=== PATIENT | male | born 1985 | race Caucasian/White ===

== ENCOUNTER 2016-09-19 22:37 | Emergency (ER) | payer BC ==
--- NOTE | 2016-09-20 00:19 | ED CLINICAL REPORT ---
Clinical Report - Physicians/Mid Levels [facility] [address] [place] [address] 09/19/2016 22:38 Patient: CHU ROY Time Seen: 00:07. Arrived- By private vehicle. Historian- patient. HISTORY OF PRESENT ILLNESS Chief Complaint: EYE PAIN and REDNESS. This started several hours ago, involves the left eye, is characterized as moderate in severity and has been constant and is still present. The patient sustained injury. This occurred at home. He has dust and unknown foreign material in the left eye that fell from overhead (Pt was working under sink felt something fall in his eye and it has become more painful since). Moderate left eye discomfort. Moderate left eye redness. No eyelid swelling, double vision or loss of vision. Photophobia. Patient denies injury to the head, face or neck. REVIEW OF SYSTEMS No fever, sore throat or cough. All systems otherwise negative, except as recorded above. PAST HISTORY Negative. Prior eye injury. He does not wear contact lenses. No history of diabetes mellitus or glaucoma. Tetanus immunization status is unknown. Surgeries: No history of previous surgery. SOCIAL HISTORY Never smoker. Occasional alcohol use. No drug use. ADDITIONAL NOTES The nursing notes have been reviewed. PHYSICAL EXAM Vital Signs: 09/19/2016 23:25 BP: 135/87. HR: 78. RR: 18. O2 saturation: 100%. Temp: 98.2 F. Appearance: Alert. Oriented X3. Patient in moderate distress. HEENT: Pharynx normal. Head appears normal to external inspection. Rt Eye: Right eye exam normal. Eyes: Visual acuity noted- see nurse's notes. Left eyelid everted for examination. Left cornea examined with fluorescein stain. Eyelids appear normal to inspection. Pupils equal, round and reactive to light. Accommodation normal. EOMs intact. Periorbital areas appear normal to inspection. Anterior chambers clear. Anterior chambers of normal depth. Lt Eye: Injected conjunctiva. Single medium sized circular shaped corneal abrasion located inferiorly. Fluorescein dye uptake on the cornea. No subconjunctival hemorrhage, conjunctival foreign body or corneal foreign body. Neck: Neck supple. Normal inspection. CVS: Normal heart rate and rhythm. Heart sounds normal. Respiratory: No respiratory distress. Breath sounds normal. Skin: No rash. Extremities: Extremities negative. Neuro: Oriented X 3. Mood/affect normal. LABS, X-RAYS, AND EKG Pulse Oximetry: 09/19/2016 23:25 O2 saturation: 100%. (FIO2 - room air). Interpretation: normal. PROGRESS AND PROCEDURES Course of Care: Proparacaine Eye Drops Opthalmic solution 2 drop given. Given in the left eye. Corneal abrasion at 6 O'Clock. no FB seen. Patient/family counseled. Disposition: Discharged. Condition: stable and improved. CLINICAL IMPRESSION Medium corneal abrasion to the left eye. No foreign body or rust ring. INSTRUCTIONS Do not work for two days. Drink plenty of fluids. No alcohol. Warnings: Further evaluation is necessary. It is very important to follow up with a physician. SEDATIVE MEDICATION: You were given sedative medication during your visit. Do not drive or operate dangerous machinery. CONTROLLED SUBSTANCE WARNINGS. GENERAL WARNINGS: Return or contact your physician immediately if your condition worsens or changes unexpectedly, if not improving as expected, or if other problems arise. Prescription Medications: Hydrocodone/APAP 5mg/325mg: take 1 to 2 orally every 6 hours as needed for pain. Dispense fifteen (15). No refills. Sulfacetamide ophthalmic solution 10% : Instill 2 drops into affected eye every 2 hours while awake for 1 week. Dispense fifteen (15) mL. No refills. OTC Medications: Acetaminophen (available over the counter): take according to label instructions. Motrin (available over the counter): take according to label instructions. Follow-up: Follow up with your doctor tomorrow. Follow-up with: Jigar Gilmore MD, Ophthalmology, , [facility], [address] [place] [address]; Abigail Garcia MD, Ophthalmology, [facility], [address] [place] [address] - [address], [place] [id number] Follow up tomorrow if not better. (Electronically signed by Amari Morgan DO 09/20/2016 3:29)
--- NOTE | 2016-09-20 00:19 | ED ORDER SUMMARY ---
..... Patient: CHU ROY OrderSheet [facility] VisitID: [id number] [address] [place] [address] 31y, M Registration Date/Time: 09/19/2016 ORDER SHEET Weight: 88.4 kg (stated) Allergies: No Known Drug Allergy GENERAL ORDERS: MEDICATION ORDERS: Proparacaine Eye Drops (Solution 0.5 %) 2 drops (affected eye) (23:53 09/19/2016 Elis Mcpherson verbal order read back to Sharonda WEATHERS) (23:53 Elis Mcpherson) IV FLUIDS: ORDER SHEET NOTES: [Electronically signed by Elvis Murdock R.N. (01:15 09/20/2016)] [Electronically signed by Amari Morgan DO (03:29 09/20/2016)] [Electronically locked/signed by Elvis Murdock R.N. (:15 09/20/2016)]
--- NOTE | 2016-09-20 00:19 | ED NURSING NOTES ---
Clinical Report - Nurses [facility] [address] [place] [address] 09/19/2016 22:38 Patient: CHU ROY TRIAGE Triage time 23:Sep 19 2016. Acuity: LEVEL 4. Chief Complaint: REDNESS, PAIN and FOREIGN BODY TO LEFT EYE. --23:29 Elvis Murdock R.N. 23:25 09/19/16. BP: 135/87. HR: 78. RR: 18. O2 saturation: 100%. Temp: 98.2 F. Pain level now 7/10. --23:29 Elvis Murdock R.N. Weight: 88.4 kg stated. Height/Length: 70 inches Per Patient. BMI: 28. --23:28 Elvis Murdock R.N. Medications None. --23:26 Elvis Murdock R.N. Allergies No Known Drug Allergy. --23:26 Elvis Murdock R.N. History Arrived by private vehicle. Historian: patient. ( Pt was working under sink felt something fall in his eye and it has become more painful since.). This started today. SOCIAL HX: Never smoker. Alcohol use; consumes beer occasionally. --23:29 Elvis Murdock R.N. Assessment The patient states feels the same. --23:29 Elvis Murdock R.N. Interventions ID band on patient. To treatment room. --23:29 Elvis Murdock R.N. PHYSICAL ASSESSMENT ( Unable to perform visual acuity with L eye pt unable to keep it open. R eye 20/20). HEENT: Photophobia present. Conjunctival findings present: redness of the left conjunctiva. --23:42 Elvis Murdock R.N. NURSING PROGRESS NOTES 23:53 09/19/2016 Proparacaine Eye Drops Opthalmic solution 2 drop given. Given in the left eye. --23:53 Elvis Murdock R.N. Cold pack applied. Call light placed in reach. Bed placed in lowest position. ( Pt resting in bed lights dimmed for comfort). --23:57 Elvis Murdock R.N. DISPOSITION / DISCHARGE No learning barriers present. Discharge instructions provided and reviewed. Patient verbalized understanding. The patient was discharged by the physician. He was discharged home. ( Pt ambulated on discharge, steady on his feet verbalized understanding of discharge instructions follow up care and medication admin). --00:34 Elvis Murdock R.N. 00:32 09/20/16. BP: 110/65. HR: 89. RR: 18. O2 saturation: 100%. Temp: 98 F. Pain level now 02/25. --00:34 Elvis Murdock R.N. Departure time: 00:34 Sep 20 2016. --00:34 Elvis Murdock R.N. Locked/Released at 09/20/2016 1:15 by Elvis Murdock R.N.
--- NOTE | 2016-09-20 00:19 | ED NURSING NOTES ---
Clinical Report - Nurses [facility] [address] [place] [address] 09/19/2016 22:38 Patient: CHU ROY TRIAGE Triage time 23:Sep 19 2016. Acuity: LEVEL 4. Chief Complaint: REDNESS, PAIN and FOREIGN BODY TO LEFT EYE. --23:29 Elvis Murdock R.N. 23:25 09/19/16. BP: 135/87. HR: 78. RR: 18. O2 saturation: 100%. Temp: 98.2 F. Pain level now 7/10. --23:29 Elvis Murdock R.N. Weight: 88.4 kg stated. Height/Length: 70 inches Per Patient. BMI: 28. --23:28 Elvis Murdock R.N. Medications None. --23:26 Elvis Murdock R.N. Allergies No Known Drug Allergy. --23:26 Elvis Murdock R.N. History Arrived by private vehicle. Historian: patient. ( Pt was working under sink felt something fall in his eye and it has become more painful since.). This started today. SOCIAL HX: Never smoker. Alcohol use; consumes beer occasionally. --23:29 Elvis Murdock R.N. Assessment The patient states feels the same. --23:29 Elvis Murdock R.N. Interventions ID band on patient. To treatment room. --23:29 Elvis Murdock R.N. PHYSICAL ASSESSMENT ( Unable to perform visual acuity with L eye pt unable to keep it open. R eye 20/20). HEENT: Photophobia present. Conjunctival findings present: redness of the left conjunctiva. --23:42 Elvis Murdock R.N. NURSING PROGRESS NOTES 23:53 09/19/2016 Proparacaine Eye Drops Opthalmic solution 2 drop given. Given in the left eye. --23:53 Elvis Murdock R.N. Cold pack applied. Call light placed in reach. Bed placed in lowest position. ( Pt resting in bed lights dimmed for comfort). --23:57 Elvis Murdock R.N. DISPOSITION / DISCHARGE No learning barriers present. Discharge instructions provided and reviewed. Patient verbalized understanding. The patient was discharged by the physician. He was discharged home. ( Pt ambulated on discharge, steady on his feet verbalized understanding of discharge instructions follow up care and medication admin). --00:34 Elvis Murdock R.N. 00:32 09/20/16. BP: 110/65. HR: 89. RR: 18. O2 saturation: 100%. Temp: 98 F. Pain level now 02/25. --00:34 Elvis Murdock R.N. Departure time: 00:34 Sep 20 2016. --00:34 Elvis Murdock R.N. Locked/Released at 09/20/2016 1:15 by Elvis Murdock R.N.
--- NOTE | 2016-09-20 00:19 | ED CLINICAL REPORT ---
Clinical Report - Physicians/Mid Levels [facility] [address] [place] [address] 09/19/2016 22:38 Patient: CHU ROY Time Seen: 00:07. Arrived- By private vehicle. Historian- patient. HISTORY OF PRESENT ILLNESS Chief Complaint: EYE PAIN and REDNESS. This started several hours ago, involves the left eye, is characterized as moderate in severity and has been constant and is still present. The patient sustained injury. This occurred at home. He has dust and unknown foreign material in the left eye that fell from overhead (Pt was working under sink felt something fall in his eye and it has become more painful since). Moderate left eye discomfort. Moderate left eye redness. No eyelid swelling, double vision or loss of vision. Photophobia. Patient denies injury to the head, face or neck. REVIEW OF SYSTEMS No fever, sore throat or cough. All systems otherwise negative, except as recorded above. PAST HISTORY Negative. Prior eye injury. He does not wear contact lenses. No history of diabetes mellitus or glaucoma. Tetanus immunization status is unknown. Surgeries: No history of previous surgery. SOCIAL HISTORY Never smoker. Occasional alcohol use. No drug use. ADDITIONAL NOTES The nursing notes have been reviewed. PHYSICAL EXAM Vital Signs: 09/19/2016 23:25 BP: 135/87. HR: 78. RR: 18. O2 saturation: 100%. Temp: 98.2 F. Appearance: Alert. Oriented X3. Patient in moderate distress. HEENT: Pharynx normal. Head appears normal to external inspection. Rt Eye: Right eye exam normal. Eyes: Visual acuity noted- see nurse's notes. Left eyelid everted for examination. Left cornea examined with fluorescein stain. Eyelids appear normal to inspection. Pupils equal, round and reactive to light. Accommodation normal. EOMs intact. Periorbital areas appear normal to inspection. Anterior chambers clear. Anterior chambers of normal depth. Lt Eye: Injected conjunctiva. Single medium sized circular shaped corneal abrasion located inferiorly. Fluorescein dye uptake on the cornea. No subconjunctival hemorrhage, conjunctival foreign body or corneal foreign body. Neck: Neck supple. Normal inspection. CVS: Normal heart rate and rhythm. Heart sounds normal. Respiratory: No respiratory distress. Breath sounds normal. Skin: No rash. Extremities: Extremities negative. Neuro: Oriented X 3. Mood/affect normal. LABS, X-RAYS, AND EKG Pulse Oximetry: 09/19/2016 23:25 O2 saturation: 100%. (FIO2 - room air). Interpretation: normal. PROGRESS AND PROCEDURES Course of Care: Proparacaine Eye Drops Opthalmic solution 2 drop given. Given in the left eye. Corneal abrasion at 6 O'Clock. no FB seen. Patient/family counseled. Disposition: Discharged. Condition: stable and improved. CLINICAL IMPRESSION Medium corneal abrasion to the left eye. No foreign body or rust ring. INSTRUCTIONS Do not work for two days. Drink plenty of fluids. No alcohol. Warnings: Further evaluation is necessary. It is very important to follow up with a physician. SEDATIVE MEDICATION: You were given sedative medication during your visit. Do not drive or operate dangerous machinery. CONTROLLED SUBSTANCE WARNINGS. GENERAL WARNINGS: Return or contact your physician immediately if your condition worsens or changes unexpectedly, if not improving as expected, or if other problems arise. Prescription Medications: Hydrocodone/APAP 5mg/325mg: take 1 to 2 orally every 6 hours as needed for pain. Dispense fifteen (15). No refills. Sulfacetamide ophthalmic solution 10% : Instill 2 drops into affected eye every 2 hours while awake for 1 week. Dispense fifteen (15) mL. No refills. OTC Medications: Acetaminophen (available over the counter): take according to label instructions. Motrin (available over the counter): take according to label instructions. Follow-up: Follow up with your doctor tomorrow. Follow-up with: Jigar Gilmore MD, Ophthalmology, , [facility], [address] [place] [address]; Abigail Garcia MD, Ophthalmology, [facility], [address] [place] [address] - [address], [place] [address] Follow up tomorrow if not better. (Electronically signed by Amari Morgan DO 09/20/2016 3:29)
--- NOTE | 2016-09-20 00:19 | ED ORDER SUMMARY ---
..... Patient: CHU ROY OrderSheet [facility] VisitID: [id number] [address] [place] [address] 31y, M Registration Date/Time: 09/19/2016 ORDER SHEET Weight: 88.4 kg (stated) Allergies: No Known Drug Allergy GENERAL ORDERS: MEDICATION ORDERS: Proparacaine Eye Drops (Solution 0.5 %) 2 drops (affected eye) (23:53 09/19/2016 Elis Mcpherson verbal order read back to Sharonda WEATHERS) (23:53 Elis Mcpherson) IV FLUIDS: ORDER SHEET NOTES: [Electronically signed by Elvis Murdock R.N. (01:15 09/20/2016)] [Electronically signed by Amari Morgan DO (03:29 09/20/2016)] [Electronically locked/signed by Elvis Murdock R.N. (:15 09/20/2016)]
--- NOTE | 2016-09-20 03:29 | ED MED RECONCILIATION SUMMARY ---
Patient: CHU ROY Medication Reconciliation Report [facility] VisitID: [id number] [address] [place] [address] 31y, M Registration Date/Time: 09/19/2016 Weight: 88.4 kg Height/Length: 70 in. BMI: 28.0 ALLERGIES: No Known Drug Allergy The patient's Home Medications are listed below: NONE. The source(s) of the original Home Medication information: Not obtained. The following Medications were given to the patient in the Emergency Department: Proparacaine [Eye Drops] Eye Drops 2 drop, administered: 09/19/2016 11:53:00 PM The following Medications were prescribed to the patient: Acetaminophen (available over the counter): take according to label instructions. -- Amari Morgan DO Motrin (available over the counter): take according to label instructions. -- Amari Morgan DO Hydrocodone/APAP 5mg/325mg: take 1 to 2 orally every 6 hours as needed for pain. Dispense fifteen (15). No refills. -- Amari Morgan DO Sulfacetamide ophthalmic solution 10% : Instill 2 drops into affected eye every 2 hours while awake for 1 week. Dispense fifteen (15) mL. No refills. -- Amari Morgan DO
--- NOTE | 2016-09-20 03:29 | ED MED RECONCILIATION SUMMARY ---
Patient: CHU ROY Medication Reconciliation Report [facility] VisitID: [id number] [address] [place] [address] 31y, M Registration Date/Time: 09/19/2016 Weight: 88.4 kg Height/Length: 70 in. BMI: 28.0 ALLERGIES: No Known Drug Allergy The patient's Home Medications are listed below: NONE. The source(s) of the original Home Medication information: Not obtained. The following Medications were given to the patient in the Emergency Department: Proparacaine [Eye Drops] Eye Drops 2 drop, administered: 09/19/2016 11:53:00 PM The following Medications were prescribed to the patient: Acetaminophen (available over the counter): take according to label instructions. -- Amari Morgan DO Motrin (available over the counter): take according to label instructions. -- Amari Morgan DO Hydrocodone/APAP 5mg/325mg: take 1 to 2 orally every 6 hours as needed for pain. Dispense fifteen (15). No refills. -- Amari Morgan DO Sulfacetamide ophthalmic solution 10% : Instill 2 drops into affected eye every 2 hours while awake for 1 week. Dispense fifteen (15) mL. No refills. -- Amari Morgan DO
--- NOTE | 2016-09-20 03:29 | ED DISCHARGE INSTRUCTIONS ---
Patient: CHU ROY General Instructions [facility] VisitID: [id number] [place] [address] 31y, M Registration Date/Time: 09/19/2016 Medium corneal abrasion to the left eye. No foreign body or rust ring. INSTRUCTIONS Do not work for two days. Drink plenty of fluids. No alcohol. Warnings: Further evaluation is necessary. It is very important to follow up with a physician. SEDATIVE MEDICATION: You were given sedative medication during your visit. Do not drive or operate dangerous machinery. CONTROLLED SUBSTANCE WARNINGS. GENERAL WARNINGS: Return or contact your physician immediately if your condition worsens or changes unexpectedly, if not improving as expected, or if other problems arise. Prescription Medications: Hydrocodone/APAP 5mg/325mg: take 1 to 2 orally every 6 hours as needed for pain. Dispense fifteen (15). No refills. Sulfacetamide ophthalmic solution 10% : Instill 2 drops into affected eye every 2 hours while awake for 1 week. Dispense fifteen (15) mL. No refills. OTC Medications: Acetaminophen (available over the counter): take according to label instructions. Motrin (available over the counter): take according to label instructions. Follow-up: Follow up with your doctor tomorrow. Follow-up with: Jigar Gilmore MD, Ophthalmology, , [facility] [place] [address]; Abigail Garcia MD, Ophthalmology, [facility] [address] [address] Follow up tomorrow if not better. ADDITIONAL INFORMATION Corneal Abrasion The cornea is the clear part in the front of the eye. This sensitive area is very painful when injured. There may be tearing and your vision may be blurry until healing occurs. You may be sensitive to light. This part of the body heals quickly. You can expect the pain to go away within 24-48 hours. If the abrasion is large or deep, your doctor may apply an eye patch, although this is not always done. An antibiotic ointment or eye drops may also be used to prevent infection. Numbing drops may be used to relieve the pain temporarily so that your eyes can be examined. However, these drops cannot be prescribed for home use because that would slow down the healing process. Also, if you cant feel your eye, there is a chance of accidentally injuring your eye further without knowing it. Home Care: A cold pack (ice in a plastic bag, wrapped in a towel) may be applied over the eye (or eyepatch) for 20 minutes at a time, to reduce pain. You may use acetaminophen (Tylenol) or ibuprofen (Motrin, Advil) to control pain, unless another pain medicine was prescribed. [NOTE: If you have chronic liver or kidney disease or ever had a stomach ulcer or GI bleeding, talk with your doctor before using these medicines.] Rest your eyes and do not read until symptoms are gone. If you use contact lenses, do not wear them until all symptoms are gone. If your vision is affected by the corneal abrasion or if an eyepatch was applied, DO NOT DRIVE a motor vehicle or operate machinery until all symptoms are gone. Otherwise, you would have trouble judging distances with only one eye. If your eyes are sensitive to light, try wearing sunglasses, or stay indoors, until symptoms go away. Follow Up as advised by our staff. Serious abrasions may be referred to an artificial glass eye maker (cabinet mounter). If no patch was used but the pain continues for more than 48 hours, you should have another exam. Return to this facility or contact the referral doctor to arrange this. If your eye was patched and if you were asked to remove the patch yourself, see your doctor or return to this facility if your pain is still present after the patch is removed. If you were given a return appointment for patch removal and re-exam, do not miss this. It could be harmful if the patch remains in place longer than advised. Get Prompt Medical Attention if any of the following occur: Increasing eye pain or pain that does not improve after 24 hours Discharge from the eye Increasing redness of the eye or swelling of the eyelids Your vision gets worse Hydrocodone Bitartrate, Acetaminophen Oral tablet What is this medicine? ACETAMINOPHEN; HYDROCODONE (a set a GARY bello fen; claudio droe KOE done) is a pain reliever. It is used to treat mild to moderate pain. How should I use this medicine? Take this medicine by mouth. Swallow it with a full glass of water. Follow the directions on the prescription label. If the medicine upsets your stomach, take the medicine with food or milk. Do not take more than you are told to take. Talk to your sanitarian aide regarding the use of this medicine in children. This medicine is not approved for use in children. What side effects may I notice from receiving this medicine? Side effects that you should report to your doctor or health child care teacher as soon as possible: allergic reactions like skin rash, itching or hives, swelling of the face, lips, or tongue breathing problems confusion feeling faint or lightheaded, falls stomach pain yellowing of the eyes or skin Side effects that usually do not require medical attention (report to your doctor or health child care teacher if they continue or are bothersome): nausea, vomiting stomach upset What may interact with this medicine? alcohol antihistamines isoniazid medicines for depression, anxiety, or psychotic disturbances medicines for sleep muscle relaxants naltrexone narcotic medicines (opiates) for pain phenobarbital ritonavir tramadol What if I miss a dose? If you miss a dose, take it as soon as you can. If it is almost time for your next dose, take only that dose. Do not take double or extra doses. Where should I keep my medicine? Keep out of the reach of children. This medicine can be abused. Keep your medicine in a safe place to protect it from theft. Do not share this medicine with anyone. Selling or giving away this medicine is dangerous and against the law. Store at room temperature between 15 and 30 degrees C (59 and 86 degrees F). Protect from light. Keep container tightly closed. Throw away any unused medicine after the expiration date. Discard unused medicine and used packaging carefully. Pets and children can be harmed if they find used or lost packages. What should I tell my health care provider before I take this medicine? They need to know if you have any of these conditions: brain tumor Crohn's disease, inflammatory bowel disease, or ulcerative colitis drink more than 3 alcohol-containing drinks per day drug abuse or addiction head injury heart or circulation problems kidney disease or problems going to the bathroom liver disease lung disease, asthma, or breathing problems an unusual or allergic reaction to acetaminophen, hydrocodone, other opioid analgesics, other medicines, foods, dyes, or preservatives or trying to get breast-feeding What should I watch for while using this medicine? Tell your doctor or health child care teacher if your pain does not go away, if it gets worse, or if you have new or a different type of pain. You may develop tolerance to the medicine. Tolerance means that you will need a higher dose of the medicine for pain relief. Tolerance is normal and is expected if you take the medicine for a long time. Do not suddenly stop taking your medicine because you may develop a severe reaction. Your body becomes used to the medicine. This does NOT mean you are addicted. Addiction is a behavior related to getting and using a drug for a non-medical reason. If you have pain, you have a medical reason to take pain medicine. Your doctor will tell you how much medicine to take. If your doctor wants you to stop the medicine, the dose will be slowly lowered over time to avoid any side effects. You may get drowsy or dizzy when you first start taking the medicine or change doses. Do not drive, use machinery, or do anything that may be dangerous until you know how the medicine affects you. Stand or sit up slowly. There are different types of narcotic medicines (opiates) for pain. If you take more than one type at the same time, you may have more side effects. Give your health care provider a list of all medicines you use. Your doctor will tell you how much medicine to take. Do not take more medicine than directed. Call emergency for help if you have problems breathing. The medicine will cause constipation. Try to have a bowel movement at least every 2 to 3 days. If you do not have a bowel movement for 3 days, call your doctor or health child care teacher. Too much acetaminophen can be very dangerous. Do not take Tylenol (acetaminophen) or medicines that contain acetaminophen with this medicine. Many non-prescription medicines contain acetaminophen. Always read the labels carefully. Sulfacetamide Sodium Eye drops, solution What is this medicine? SULFACETAMIDE (sul fa SEE ta mide) is a sulfonamide antibiotic. It is used to treat eye infections. How should I use this medicine? This medicine is only for use in the eye. Do not take by mouth. Follow the directions on the prescription label. Wash hands before and after use. Tilt your head back slightly and pull your lower eyelid down with your index finger to form a pouch. Try not to touch the tip of the dropper to your eye, fingertips, or any other surface. Squeeze the prescribed number of drops into the pouch. Close the eye gently to spread the drops. Your vision may blur for a few minutes. Use your doses at regular intervals. Do not use your medicine more often than directed. Finish the full course prescribed by your doctor or health child care teacher even if you think your condition is better. Talk to your sanitarian aide regarding the use of this medicine in children. Special care may be needed. What side effects may I notice from receiving this medicine? Side effects that you should report to your doctor or health child care teacher as soon as possible: blurred vision that does not go away burning, blistering, peeling, stinging, or itching of the eyes or eyelids, skin or mouth eye redness, swelling, or pain Side effects that usually do not require medical attention (report to your doctor or health child care teacher if they continue or are bothersome): blurred vision for a few moments after application What may interact with this medicine? eye products that contain silver What if I miss a dose? If you miss a dose, use it as soon as you can. If it is almost time for your next dose, use only that dose. Do not use double or extra doses. Where should I keep my medicine? Keep out of the reach of children. Store between 2 and 30 degrees C (36 and 86 degrees F). Do not freeze. Throw away any unused eye products after the expiration date. What should I tell my health care provider before I take this medicine? They need to know if you have any of these conditions: eye injury or eye surgery an unusual or allergic reaction to sulfacetamide, sulfa drugs, other medicines, foods, dyes, or preservatives or trying to get breast-feeding What should I watch for while using this medicine? Tell your doctor or health child care teacher if your symptoms do not get better in 2 to 3 days. A full course of treatment is usually 7 to 10 days. If you get any sign of an allergic reaction, stop using your eye product and call your doctor or health child care teacher. Wear sunglasses if this medicine makes your eyes more sensitive to light. Keep out of the sun, or wear protective clothing outdoors and use a sunscreen. Do not use sun lamps or sun tanning beds or booths. Acetaminophen Oral tablet What is this medicine? ACETAMINOPHEN (a set a GARY bello fen) is a pain reliever. It is used to treat mild pain and fever. How should I use this medicine? Take this medicine by mouth with a glass of water. Follow the directions on the package or prescription label. Take your medicine at regular intervals. Do not take your medicine more often than directed. Talk to your sanitarian aide regarding the use of this medicine in children. While this drug may be prescribed for children as young as 6 years of age for selected conditions, precautions do apply. What side effects may I notice from receiving this medicine? Side effects that you should report to your doctor or health child care teacher as soon as possible: allergic reactions like skin rash, itching or hives, swelling of the face, lips, or tongue breathing problems fever or sore throat redness, blistering, peeling or loosening of the skin, including inside the mouth trouble passing urine or change in the amount of urine unusual bleeding or bruising unusually weak or tired yellowing of the eyes or skin Side effects that usually do not require medical attention (report to your doctor or health child care teacher if they continue or are bothersome): headache nausea, stomach upset What may interact with this medicine? alcohol imatinib isoniazid other medicines with acetaminophen What if I miss a dose? If you miss a dose, take it as soon as you can. If it is almost time for your next dose, take only that dose. Do not take double or extra doses. Where should I keep my medicine? Keep out of reach of children. Store at room temperature between 20 and 25 degrees C (68 and 77 degrees F). Protect from moisture and heat. Throw away any unused medicine after the expiration date. What should I tell my health care provider before I take this medicine? They need to know if you have any of these conditions: if you frequently drink alcohol containing drinks liver disease an unusual or allergic reaction to acetaminophen, other medicines, foods, dyes or preservatives or trying to get breast-feeding What should I watch for while using this medicine? Tell your doctor or health child care teacher if the pain lasts more than 10 days (5 days for children), if it gets worse, or if there is a new or different kind of pain. Also, check with your doctor if a fever lasts for more than 3 days. Do not take other medicines that contain acetaminophen with this medicine. Always read labels carefully. If you have questions, ask your doctor or pharmacist. If you take too much acetaminophen get medical help right away. Too much acetaminophen can be very dangerous and cause liver damage. Even if you do not have symptoms, it is important to get help right away. Ibuprofen Oral tablet What is this medicine? IBUPROFEN (eye BYOO proe fen) is a non-steroidal anti-inflammatory drug (NSAID). It is used for dental pain, fever, headaches or migraines, osteoarthritis, rheumatoid arthritis, or painful monthly periods. It can also relieve minor aches and pains caused by a cold, flu, or sore throat. How should I use this medicine? Take this medicine by mouth with a glass of water. Follow the directions on the prescription label. Take this medicine with food if your stomach gets upset. Try to not lie down for at least 10 minutes after you take the medicine. Take your medicine at regular intervals. Do not take your medicine more often than directed. A special MedGuide will be given to you by the pharmacist with each prescription and refill. Be sure to read this information carefully each time. Talk to your sanitarian aide regarding the use of this medicine in children. Special care may be needed. What side effects may I notice from receiving this medicine? Side effects that you should report to your doctor or health child care teacher as soon as possible: allergic reactions like skin rash, itching or hives, swelling of the face, lips, or tongue black or bloody stools, blood in the urine or in vomit breathing problems changes in vision chest pain general ill feeling or flu-like symptoms nausea or vomiting redness, blistering, peeling or loosening of the skin, including inside the mouth slurred speech or weakness on one side of the body stomach pain unexplained weight gain or swelling unusually weak or tired yellowing of eyes or skin Side effects that usually do not require medical attention (report to your doctor or health child care teacher if they continue or are bothersome): constipation or diarrhea dizziness gas or heartburn stomach upset What may interact with this medicine? Do not take this medicine with any of the following medications: cidofovir ketorolac methotrexate pemetrexed This medicine may also interact with the following medications: alcohol aspirin diuretics lithium other drugs for inflammation like prednisone warfarin What if I miss a dose? If you miss a dose, take it as soon as you can. If it is almost time for your next dose, take only that dose. Do not take double or extra doses. Where should I keep my medicine? Keep out of the reach of children. Store at room temperature between 15 and 30 degrees C (59 and 86 degrees F). Keep container tightly closed. Throw away any unused medicine after the expiration date. What should I tell my health care provider before I take this medicine? They need to know if you have any of these conditions: asthma cigarette smoker drink more than 3 alcohol containing drinks a day heart disease or circulation problems such as heart failure or leg edema (fluid retention) high blood pressure kidney disease liver disease stomach bleeding or ulcers an unusual or allergic reaction to ibuprofen, aspirin, other NSAIDS, other medicines, foods, dyes, or preservatives or trying to get breast-feeding What should I watch for while using this medicine? Tell your doctor or healthcare professional if your symptoms do not start to get better or if they get worse. This medicine does not prevent heart attack or stroke. In fact, this medicine may increase the chance of a heart attack or stroke. The chance may increase with longer use of this medicine and in people who have heart disease. If you take aspirin to prevent heart attack or stroke, talk with your doctor or health child care teacher. Do not take other medicines that contain aspirin, ibuprofen, or naproxen with this medicine. Side effects such as stomach upset, nausea, or ulcers may be more likely to occur. Many medicines available without a prescription should not be taken with this medicine. This medicine can cause ulcers and bleeding in the stomach and intestines at any time during treatment. Ulcers and bleeding can happen without warning symptoms and can cause . To reduce your risk, do not smoke cigarettes or drink alcohol while you are taking this medicine. You may get drowsy or dizzy. Do not drive, use machinery, or do anything that needs mental alertness until you know how this medicine affects you. Do not stand or sit up quickly, especially if you are an older patient. This reduces the risk of dizzy or fainting spells. This medicine can cause you to bleed more easily. Try to avoid damage to your teeth and gums when you brush or floss your teeth. You have been given the following additional information: Corneal Abrasion Hydrocodone Bitartrate, Acetaminophen Oral tablet Sulfacetamide Sodium Eye drops, solution Acetaminophen Oral tablet Ibuprofen Oral tablet Do not work for two days. (Electronically signed by Amari Morgan DO 09/20/2016 3:29)
--- NOTE | 2016-09-20 03:29 | ED MAR SUMMARY ---
..... Medication Administration Record [facility] [address] [place] [address] Patient: CHU ROY Visit ID: [id number] 31y, M Weight: 88.4 kg Height/Length: 70 in BMI: 28 ALLERGIES: No Known Drug Allergy Given 23:53 09/19/2016 Elvis Murdock R.N. Medication Administered: PROPARACAINE [EYE DROPS], Dose: 2 drop Opthalmic solution Eye Drops. Medication Ordered: Proparacaine Eye Drops (Solution 0.5 %) 2 drops (affected eye).
--- NOTE | 2016-09-20 03:29 | ED MAR SUMMARY ---
..... Medication Administration Record [facility] [address] [place] [address] Patient: CHU ROY Visit ID: [id number] 31y, M Weight: 88.4 kg Height/Length: 70 in BMI: 28 ALLERGIES: No Known Drug Allergy Given 23:53 09/19/2016 Elvis Murdock R.N. Medication Administered: PROPARACAINE [EYE DROPS], Dose: 2 drop Opthalmic solution Eye Drops. Medication Ordered: Proparacaine Eye Drops (Solution 0.5 %) 2 drops (affected eye).
--- NOTE | 2016-09-20 03:29 | ED DISCHARGE INSTRUCTIONS ---
Patient: CHU ROY General Instructions [facility] VisitID: [id number] [place] [address] 31y, M Registration Date/Time: 09/19/2016 Medium corneal abrasion to the left eye. No foreign body or rust ring. INSTRUCTIONS Do not work for two days. Drink plenty of fluids. No alcohol. Warnings: Further evaluation is necessary. It is very important to follow up with a physician. SEDATIVE MEDICATION: You were given sedative medication during your visit. Do not drive or operate dangerous machinery. CONTROLLED SUBSTANCE WARNINGS. GENERAL WARNINGS: Return or contact your physician immediately if your condition worsens or changes unexpectedly, if not improving as expected, or if other problems arise. Prescription Medications: Hydrocodone/APAP 5mg/325mg: take 1 to 2 orally every 6 hours as needed for pain. Dispense fifteen (15). No refills. Sulfacetamide ophthalmic solution 10% : Instill 2 drops into affected eye every 2 hours while awake for 1 week. Dispense fifteen (15) mL. No refills. OTC Medications: Acetaminophen (available over the counter): take according to label instructions. Motrin (available over the counter): take according to label instructions. Follow-up: Follow up with your doctor tomorrow. Follow-up with: Jigar Gilmore MD, Ophthalmology, , [facility] [place] [address]; Abigail Garcia MD, Ophthalmology, [facility] [address] - [address] [address] Follow up tomorrow if not better. ADDITIONAL INFORMATION Corneal Abrasion The cornea is the clear part in the front of the eye. This sensitive area is very painful when injured. There may be tearing and your vision may be blurry until healing occurs. You may be sensitive to light. This part of the body heals quickly. You can expect the pain to go away within 24-48 hours. If the abrasion is large or deep, your doctor may apply an eye patch, although this is not always done. An antibiotic ointment or eye drops may also be used to prevent infection. Numbing drops may be used to relieve the pain temporarily so that your eyes can be examined. However, these drops cannot be prescribed for home use because that would slow down the healing process. Also, if you cant feel your eye, there is a chance of accidentally injuring your eye further without knowing it. Home Care: A cold pack (ice in a plastic bag, wrapped in a towel) may be applied over the eye (or eyepatch) for 20 minutes at a time, to reduce pain. You may use acetaminophen (Tylenol) or ibuprofen (Motrin, Advil) to control pain, unless another pain medicine was prescribed. [NOTE: If you have chronic liver or kidney disease or ever had a stomach ulcer or GI bleeding, talk with your doctor before using these medicines.] Rest your eyes and do not read until symptoms are gone. If you use contact lenses, do not wear them until all symptoms are gone. If your vision is affected by the corneal abrasion or if an eyepatch was applied, DO NOT DRIVE a motor vehicle or operate machinery until all symptoms are gone. Otherwise, you would have trouble judging distances with only one eye. If your eyes are sensitive to light, try wearing sunglasses, or stay indoors, until symptoms go away. Follow Up as advised by our staff. Serious abrasions may be referred to an relationship specialist (flower stripper). If no patch was used but the pain continues for more than 48 hours, you should have another exam. Return to this facility or contact the referral doctor to arrange this. If your eye was patched and if you were asked to remove the patch yourself, see your doctor or return to this facility if your pain is still present after the patch is removed. If you were given a return appointment for patch removal and re-exam, do not miss this. It could be harmful if the patch remains in place longer than advised. Get Prompt Medical Attention if any of the following occur: Increasing eye pain or pain that does not improve after 24 hours Discharge from the eye Increasing redness of the eye or swelling of the eyelids Your vision gets worse Hydrocodone Bitartrate, Acetaminophen Oral tablet What is this medicine? ACETAMINOPHEN; HYDROCODONE (a set a GARY bello fen; claudio droe KOE done) is a pain reliever. It is used to treat mild to moderate pain. How should I use this medicine? Take this medicine by mouth. Swallow it with a full glass of water. Follow the directions on the prescription label. If the medicine upsets your stomach, take the medicine with food or milk. Do not take more than you are told to take. Talk to your mid level practitioner regarding the use of this medicine in children. This medicine is not approved for use in children. What side effects may I notice from receiving this medicine? Side effects that you should report to your doctor or health acute care physical therapist as soon as possible: allergic reactions like skin rash, itching or hives, swelling of the face, lips, or tongue breathing problems confusion feeling faint or lightheaded, falls stomach pain yellowing of the eyes or skin Side effects that usually do not require medical attention (report to your doctor or health acute care physical therapist if they continue or are bothersome): nausea, vomiting stomach upset What may interact with this medicine? alcohol antihistamines isoniazid medicines for depression, anxiety, or psychotic disturbances medicines for sleep muscle relaxants naltrexone narcotic medicines (opiates) for pain phenobarbital ritonavir tramadol What if I miss a dose? If you miss a dose, take it as soon as you can. If it is almost time for your next dose, take only that dose. Do not take double or extra doses. Where should I keep my medicine? Keep out of the reach of children. This medicine can be abused. Keep your medicine in a safe place to protect it from theft. Do not share this medicine with anyone. Selling or giving away this medicine is dangerous and against the law. Store at room temperature between 15 and 30 degrees C (59 and 86 degrees F). Protect from light. Keep container tightly closed. Throw away any unused medicine after the expiration date. Discard unused medicine and used packaging carefully. Pets and children can be harmed if they find used or lost packages. What should I tell my health care provider before I take this medicine? They need to know if you have any of these conditions: brain tumor Crohn's disease, inflammatory bowel disease, or ulcerative colitis drink more than 3 alcohol-containing drinks per day drug abuse or addiction head injury heart or circulation problems kidney disease or problems going to the bathroom liver disease lung disease, asthma, or breathing problems an unusual or allergic reaction to acetaminophen, hydrocodone, other opioid analgesics, other medicines, foods, dyes, or preservatives or trying to get breast-feeding What should I watch for while using this medicine? Tell your doctor or health acute care physical therapist if your pain does not go away, if it gets worse, or if you have new or a different type of pain. You may develop tolerance to the medicine. Tolerance means that you will need a higher dose of the medicine for pain relief. Tolerance is normal and is expected if you take the medicine for a long time. Do not suddenly stop taking your medicine because you may develop a severe reaction. Your body becomes used to the medicine. This does NOT mean you are addicted. Addiction is a behavior related to getting and using a drug for a non-medical reason. If you have pain, you have a medical reason to take pain medicine. Your doctor will tell you how much medicine to take. If your doctor wants you to stop the medicine, the dose will be slowly lowered over time to avoid any side effects. You may get drowsy or dizzy when you first start taking the medicine or change doses. Do not drive, use machinery, or do anything that may be dangerous until you know how the medicine affects you. Stand or sit up slowly. There are different types of narcotic medicines (opiates) for pain. If you take more than one type at the same time, you may have more side effects. Give your health care provider a list of all medicines you use. Your doctor will tell you how much medicine to take. Do not take more medicine than directed. Call emergency for help if you have problems breathing. The medicine will cause constipation. Try to have a bowel movement at least every 2 to 3 days. If you do not have a bowel movement for 3 days, call your doctor or health acute care physical therapist. Too much acetaminophen can be very dangerous. Do not take Tylenol (acetaminophen) or medicines that contain acetaminophen with this medicine. Many non-prescription medicines contain acetaminophen. Always read the labels carefully. Sulfacetamide Sodium Eye drops, solution What is this medicine? SULFACETAMIDE (sul fa SEE ta mide) is a sulfonamide antibiotic. It is used to treat eye infections. How should I use this medicine? This medicine is only for use in the eye. Do not take by mouth. Follow the directions on the prescription label. Wash hands before and after use. Tilt your head back slightly and pull your lower eyelid down with your index finger to form a pouch. Try not to touch the tip of the dropper to your eye, fingertips, or any other surface. Squeeze the prescribed number of drops into the pouch. Close the eye gently to spread the drops. Your vision may blur for a few minutes. Use your doses at regular intervals. Do not use your medicine more often than directed. Finish the full course prescribed by your doctor or health acute care physical therapist even if you think your condition is better. Talk to your mid level practitioner regarding the use of this medicine in children. Special care may be needed. What side effects may I notice from receiving this medicine? Side effects that you should report to your doctor or health acute care physical therapist as soon as possible: blurred vision that does not go away burning, blistering, peeling, stinging, or itching of the eyes or eyelids, skin or mouth eye redness, swelling, or pain Side effects that usually do not require medical attention (report to your doctor or health acute care physical therapist if they continue or are bothersome): blurred vision for a few moments after application What may interact with this medicine? eye products that contain silver What if I miss a dose? If you miss a dose, use it as soon as you can. If it is almost time for your next dose, use only that dose. Do not use double or extra doses. Where should I keep my medicine? Keep out of the reach of children. Store between 2 and 30 degrees C (36 and 86 degrees F). Do not freeze. Throw away any unused eye products after the expiration date. What should I tell my health care provider before I take this medicine? They need to know if you have any of these conditions: eye injury or eye surgery an unusual or allergic reaction to sulfacetamide, sulfa drugs, other medicines, foods, dyes, or preservatives or trying to get breast-feeding What should I watch for while using this medicine? Tell your doctor or health acute care physical therapist if your symptoms do not get better in 2 to 3 days. A full course of treatment is usually 7 to 10 days. If you get any sign of an allergic reaction, stop using your eye product and call your doctor or health acute care physical therapist. Wear sunglasses if this medicine makes your eyes more sensitive to light. Keep out of the sun, or wear protective clothing outdoors and use a sunscreen. Do not use sun lamps or sun tanning beds or booths. Acetaminophen Oral tablet What is this medicine? ACETAMINOPHEN (a set a GARY bello fen) is a pain reliever. It is used to treat mild pain and fever. How should I use this medicine? Take this medicine by mouth with a glass of water. Follow the directions on the package or prescription label. Take your medicine at regular intervals. Do not take your medicine more often than directed. Talk to your mid level practitioner regarding the use of this medicine in children. While this drug may be prescribed for children as young as 6 years of age for selected conditions, precautions do apply. What side effects may I notice from receiving this medicine? Side effects that you should report to your doctor or health acute care physical therapist as soon as possible: allergic reactions like skin rash, itching or hives, swelling of the face, lips, or tongue breathing problems fever or sore throat redness, blistering, peeling or loosening of the skin, including inside the mouth trouble passing urine or change in the amount of urine unusual bleeding or bruising unusually weak or tired yellowing of the eyes or skin Side effects that usually do not require medical attention (report to your doctor or health acute care physical therapist if they continue or are bothersome): headache nausea, stomach upset What may interact with this medicine? alcohol imatinib isoniazid other medicines with acetaminophen What if I miss a dose? If you miss a dose, take it as soon as you can. If it is almost time for your next dose, take only that dose. Do not take double or extra doses. Where should I keep my medicine? Keep out of reach of children. Store at room temperature between 20 and 25 degrees C (68 and 77 degrees F). Protect from moisture and heat. Throw away any unused medicine after the expiration date. What should I tell my health care provider before I take this medicine? They need to know if you have any of these conditions: if you frequently drink alcohol containing drinks liver disease an unusual or allergic reaction to acetaminophen, other medicines, foods, dyes or preservatives or trying to get breast-feeding What should I watch for while using this medicine? Tell your doctor or health acute care physical therapist if the pain lasts more than 10 days (5 days for children), if it gets worse, or if there is a new or different kind of pain. Also, check with your doctor if a fever lasts for more than 3 days. Do not take other medicines that contain acetaminophen with this medicine. Always read labels carefully. If you have questions, ask your doctor or pharmacist. If you take too much acetaminophen get medical help right away. Too much acetaminophen can be very dangerous and cause liver damage. Even if you do not have symptoms, it is important to get help right away. Ibuprofen Oral tablet What is this medicine? IBUPROFEN (eye BYOO proe fen) is a non-steroidal anti-inflammatory drug (NSAID). It is used for dental pain, fever, headaches or migraines, osteoarthritis, rheumatoid arthritis, or painful monthly periods. It can also relieve minor aches and pains caused by a cold, flu, or sore throat. How should I use this medicine? Take this medicine by mouth with a glass of water. Follow the directions on the prescription label. Take this medicine with food if your stomach gets upset. Try to not lie down for at least 10 minutes after you take the medicine. Take your medicine at regular intervals. Do not take your medicine more often than directed. A special MedGuide will be given to you by the pharmacist with each prescription and refill. Be sure to read this information carefully each time. Talk to your mid level practitioner regarding the use of this medicine in children. Special care may be needed. What side effects may I notice from receiving this medicine? Side effects that you should report to your doctor or health acute care physical therapist as soon as possible: allergic reactions like skin rash, itching or hives, swelling of the face, lips, or tongue black or bloody stools, blood in the urine or in vomit breathing problems changes in vision chest pain general ill feeling or flu-like symptoms nausea or vomiting redness, blistering, peeling or loosening of the skin, including inside the mouth slurred speech or weakness on one side of the body stomach pain unexplained weight gain or swelling unusually weak or tired yellowing of eyes or skin Side effects that usually do not require medical attention (report to your doctor or health acute care physical therapist if they continue or are bothersome): constipation or diarrhea dizziness gas or heartburn stomach upset What may interact with this medicine? Do not take this medicine with any of the following medications: cidofovir ketorolac methotrexate pemetrexed This medicine may also interact with the following medications: alcohol aspirin diuretics lithium other drugs for inflammation like prednisone warfarin What if I miss a dose? If you miss a dose, take it as soon as you can. If it is almost time for your next dose, take only that dose. Do not take double or extra doses. Where should I keep my medicine? Keep out of the reach of children. Store at room temperature between 15 and 30 degrees C (59 and 86 degrees F). Keep container tightly closed. Throw away any unused medicine after the expiration date. What should I tell my health care provider before I take this medicine? They need to know if you have any of these conditions: asthma cigarette smoker drink more than 3 alcohol containing drinks a day heart disease or circulation problems such as heart failure or leg edema (fluid retention) high blood pressure kidney disease liver disease stomach bleeding or ulcers an unusual or allergic reaction to ibuprofen, aspirin, other NSAIDS, other medicines, foods, dyes, or preservatives or trying to get breast-feeding What should I watch for while using this medicine? Tell your doctor or healthcare professional if your symptoms do not start to get better or if they get worse. This medicine does not prevent heart attack or stroke. In fact, this medicine may increase the chance of a heart attack or stroke. The chance may increase with longer use of this medicine and in people who have heart disease. If you take aspirin to prevent heart attack or stroke, talk with your doctor or health acute care physical therapist. Do not take other medicines that contain aspirin, ibuprofen, or naproxen with this medicine. Side effects such as stomach upset, nausea, or ulcers may be more likely to occur. Many medicines available without a prescription should not be taken with this medicine. This medicine can cause ulcers and bleeding in the stomach and intestines at any time during treatment. Ulcers and bleeding can happen without warning symptoms and can cause . To reduce your risk, do not smoke cigarettes or drink alcohol while you are taking this medicine. You may get drowsy or dizzy. Do not drive, use machinery, or do anything that needs mental alertness until you know how this medicine affects you. Do not stand or sit up quickly, especially if you are an older patient. This reduces the risk of dizzy or fainting spells. This medicine can cause you to bleed more easily. Try to avoid damage to your teeth and gums when you brush or floss your teeth. You have been given the following additional information: Corneal Abrasion Hydrocodone Bitartrate, Acetaminophen Oral tablet Sulfacetamide Sodium Eye drops, solution Acetaminophen Oral tablet Ibuprofen Oral tablet Do not work for two days. (Electronically signed by Amari Morgan DO 09/20/2016 3:29)
== END 2016-09-20 00:30 | disposition home or self-care (01) ==
LOC: ED SRH 22:37
DX: S05.02XA Injury of conjunctiva and corneal abrasion without foreign body, left eye, initial encounter (principal); X58.XXXA Exposure to other specified factors, initial encounter; Y93.9 Activity, unspecified; Y92.009 Unspecified place in unspecified non-institutional (private) residence as the place of occurrence of the external cause; Y99.9 Unspecified external cause status